=== PATIENT | female | born 1985 | race African-American/Black ===

== ENCOUNTER 2022-04-05 14:56 | Emergency (ER) | payer OTHER, SELFPAY ==
--- NOTE | ~2022-04-05 | CT_ITS ---
EXAMINATION: CT BRAIN W/O DATE: 04/05/2022 17:26 INDICATION: Syncope. Hypertension. TECHNIQUE: Computed tomography (CT) of the head was performed without intravenous contrast. The dose- length product was 605.33 mGy-cm. Automated exposure control and iterative reconstruction technique w ere employed. COMPARISON: No prior studies for comparison. FINDINGS: Normal brain parenchymal volume for age. Normal verma-white differentiation. No acute intrac ranial hemorrhage, infarction, mass or mass effect. There are bilateral symmetric basal ganglia calci fications. No ventriculomegaly or midline shift. Midline sagittal images demonstrate a normal corpus callosum, c raniovertebral junction and sella turcica. Basilar cisterns are patent. Paranasal sinuses and mastoids are pneumatized. No depressed skull fractures. IMPRESSION: 1. No acute intracranial abnormality. Reviewed, dictated and finalized at location B.
--- NOTE | ~2022-04-05 | XR_ITS ---
EXAMINATION: XR chest 2V 04/05/2022 17:37 INDICATION: Syncope. PROCEDURE: 2 view chest COMPARISON: No prior studies for comparison. FINDINGS: The lungs are clear. The cardiomediastinal silhouette is within normal limits. There are no pleural effusions. There is no pneumothorax suspected. IMPRESSION: 1: NO ACUTE CARDIOPULMONARY DISEASE. Reviewed, dictated and finalized at location B.
[2022-04-05 15:01] VITALS: BP 175/113; PULSE 84; RESP 16; TEMP 36.4; O2SAT 99
--- NOTE | 2022-04-05 15:13 | ECG_ITS ---
Measurements Intervals [place] Rate: 78 P: 53 MD: 146 QRS: 64 QRSD: 86 T: 42 QT: 375 QTc: 429 Interpretive Statements SINUS RHYTHM WITH SINUS ARRHYTHMIA BASELINE ARTIFACT VOLTAGE CRITERIA FOR LVH DIFFUSE J-POINT ELEVATION CONSIDER REPOLARIZATION ABNORMALITY BORDERLINE ECG NO PREVIOUS ECG AVAILABLE FOR COMPARISON Electronically Signed On 04-05-2022 16:28:00 CDT by Brian Ashley M.D.
[2022-04-05 15:28] LABS: Basophils Percent Auto 0.9 % (0.2-1.2); Eosinophils Absolute Auto 0.1 K/mm3 (0-0.3); Eosinophils Percent Auto 2.8 % (0-4.4); Hematocrit 38.9 % (37.0-47.0); Hemoglobin 12.4 g/dL (12.0-15.0); Immature Granulocyte Absolute 0.01 K/mm3 (0.00-0.031); Immature Granulocyte Percent A 0.2 % (0-0.5); Lymphocytes Absolute Auto 2.12 K/mm3 (0.9-3.2); Lymphocytes Percent Auto 45.1 % (18.3-44.2); Mean Corpuscular HGB Conc 31.9 g/dl (32-36); Mean Corpuscular Hemoglobin 29.5 pg (26-34); Mean Corpuscular Volume 92.4 fl (80-100); Mean Platelet Volume 10.3 fl (7.4-10.4); Monocytes Absolute Auto 0.4 K/mm3 (0.1-0.6); Monocytes Percent Auto 8.7 % (2.6-8.5); Neutrophils Percent Auto 42.3 % (45.5-73.1); Platelet Count Result 268 k/mm3 (150-375); Red Blood Count 4.21 M/mm3 (4.2-5.4); Red Cell Distribution Width 13.3 % (11.5-14.5); White Blood Count 4.7 K/mm3 (4.5-10.0)
[2022-04-05 15:38] LABS: Alanine Aminotransferase 15 U/L (6-35); Albumin Level 4.9 g/dL (3.5-5.1); Alkaline Phosphatase 58 U/L (38-126); Anion Gap 10 mmol/L (8-16); Aspartate Amino Transferase 22 U/L (14-36); Bilirubin,Total 0.5 mg/dL (0.2-1.3); Blood Urea Nitrogen 13 mg/dL (7-17); Calcium 9.3 mg/dL (8.4-10.2); Carbon Dioxide 25 mmol/L (22-30); Chloride 104 mmol/L (98-107); Estimated CRCL calculation 77 ml/min; Estimated Glomerular Filt Rate > 60; Glucose 83 mg/dL (65-110); Potassium 3.9 mmol/L (3.4-5.0); Sodium 139 mmol/L (137-145)
--- NOTE | 2022-04-05 18:19 | ED.DIZZY ---
HPI - Dizziness General Chief Complaint: Syncope <Disha Cote PA-C - Last Filed: 04/05/22 20:48> Stated Complaint: High BP, Pressure in Chest <SHAWN Corbin Last Filed: 04/05/22 20:48> Time Seen by Provider: 04/05/22 17:06 <SHAWN Corbin Last Filed: 04/05/22 20:48> Source: patient <SHAWN Corbin Last Filed: 04/05/22 20:48> Mode of arrival: ambulatory <SHAWN Corbin Last Filed: 04/05/22 20:48> Limitations: no limitations <SHAWN Corbin Last Filed: 04/05/22 20:48> History of Present Illness HPI Narrative: This is a 36 year old female that presents to the ER after a syncopal episode today. Reports she was sitting in class and started to feel flushed. She passed out. Does report hitting her head. No other focal injuries. Reports she has not passed out before. Reports earlier today she was experiencing some left sided arm discomfort and tingling radiating into her left chest. Reports no symptoms currently. Denies vomiting, focal numness or weakness. <SHAWN Corbin Last Filed: 04/05/22 20:48> Related Data Home Medications: Home Medications Medication Instructions Recorded Confirmed No Home Medications 04/05/22 04/05/22 <Disha Cote PA-C - Last Filed: 04/05/22 20:48> Allergies/Adverse Reactions: Allergies Allergy/AdvReac Type Severity Reaction Status Date / Time No Known Allergies Allergy Verified 04/05/22 15:01 <SHAWN Corbin Last Filed: 04/05/22 20:48> Review of Systems Review of Systems: CONSTITUTIONAL: Denies fever CARDIOVASCULAR: Reports chest pain. Denies palpitations, or edema. RESPIRATORY: Denies dyspnea. GASTROINTESTINAL: Denies vomiting MUSCULOSKELETAL: Denies back pain, joint pain, or myalgia. NEUROLOGIC: Denies headache, numbness, or weakness. <SHAWN Corbin Last Filed: 04/05/22 20:48> All systems reviewed & are unremarkable except as noted in HPI and below <Disha Cote PA-C - Last Filed: 04/05/22 20:48> PMFSH Past Medical History Medical History: Medical History Allergies <Disha Cote PA-C - Last Filed: 04/05/22 20:48> Surgical History Surgical History: Surgical History No pertinent past surgical history <Disha Cote PA-C - Last Filed: 04/05/22 20:48> Family History Family History: Family History Father Hypertension Mother Hypertension Depression Sibling Depression Alcoholism Grandparent Alcoholism Asthma Cancer Diabetes mellitus Hypertension Depression Heart disease Cerebrovascular accident <Disha Cote PA-C - Last Filed: 04/05/22 20:48> Social History Social History: Social History Smoking status: Never smoker Alcohol intake: current Drinks per week: 2 Substance use: never <Disha Cote PA-C - Last Filed: 04/05/22 20:48> Exam Narrative: GENERAL: Well-appearing, well-nourished, and in no acute distress. HEAD: Normocephalic, atraumatic. EYES: PERRLA and EOMI. ENT: Nares clear, no rhinorrhea or epistaxis. Mucous membranes moist. Oropharynx without tonsillar hypertrophy exudate or other lesions. Bilateral TMs pearly verma non-bulging NECK: Supple. No adenopathy or masses. CHEST: Clear to auscultation. No respiratory distress. No wheezes rales or rhonchi HEART: Regular rate and rhythm. No murmur heard. Normal peripheral pulses. EXTREMITIES: Normal range of motion. No edema. Strength equal in bilateral upper and lower extremities (5/5) SKIN: Warm, dry, no rash. NEURO: No focal deficits. Alert and oriented x3. Cranial nerves II through XII grossly intact PSYCH: Normal mood and affect <Disha Cote PA-C - Last Filed: 04/05/22 20:48> Course N
[2022-04-05 19:13] LABS: INR 1.1; Prothrombin Time 13.4 Seconds (11.1-14.7)
[2022-04-05 19:14] LABS: Partial Thromboplastin Time 36.3 SECONDS (22.3-36.8)
[2022-04-05 19:23] LABS: D Dimer 0.38 ug/mL (<0.48)
[2022-04-05 19:34] LABS: Troponin I < 0.012 ng/mL (0.000-0.034)
[2022-04-05 21:34] VITALS: BP 154/72; PULSE 65; RESP 20; O2SAT 100
== END 2022-04-05 21:15 | disposition home or self-care (01) ==
PROVIDERS: Emergency Medicine; Physician Assistant; Emergency Provider Emergency Medicine; PCP Nurse Practitioner Family
DX: R55 Syncope and collapse (principal); I10 Essential (primary) hypertension; R94.31 Abnormal electrocardiogram [ECG] [EKG]
CPT/HCPCS: 36415; 70450; 71046; 80053; 84484; 85025; 85380; 85610; 85730; 93005; 99284

== ENCOUNTER 2022-04-14 15:46 | Outpatient (CLI) | payer OTHER, SELFPAY ==
[2022-04-14 19:38] LABS: T4 Thyroxine 7.36 ug/dL (5.53-11.0)
== END 2022-04-14 15:47 | disposition home or self-care (01) ==
LOC: ANHLAB 15:48
PROVIDERS: PCP Nurse Practitioner Family; Visit Provider Obstetrics & Gynecology
DX: E04.9 Nontoxic goiter, unspecified (principal)
CPT/HCPCS: 36415; 84436; 84443

== ENCOUNTER 2022-05-14 08:53 | Emergency (ER) | payer OTHER, SELFPAY ==
[2022-05-14 09:14] VITALS: BP 138/89; PULSE 83; RESP 16; TEMP 36.7; O2SAT 100
[2022-05-14 09:15] VITALS: BP 138/89; PULSE 83; RESP 16; TEMP 36.7; O2SAT 100
--- NOTE | 2022-05-14 09:41 | ED.URI ---
HPI - URI/Sore Throat General Chief Complaint: Upper Respiratory Infection Stated Complaint: sore throat, bodyaches Time Seen by Provider: 05/14/22 09:15 Source: patient Mode of arrival: ambulatory Limitations: no limitations History of Present Illness HPI Narrative: Ms. Ba is a 36-year-old female patient presenting to the clinic today with complaints of sore throat, body aches, sinus pressure, chills, nasal congestion, and productive cough with brown sputum. She reports that she has been sick for well over a week. 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 MD elicited complaint: cough, sore throat, rhinorrhea, nasal congestion and sinus pain Related Data Home Medications Medication Instructions Recorded Confirmed levonorgestrel 20 mcg/24 hours (8 1 device intrauterine ONCE 04/14/22 05/14/22 yrs) 52 mg intrauterine device (Mirena) Allergies Allergy/AdvReac Type Severity Reaction Status Date / Time No Known Allergies Allergy Verified 05/14/22 09:15 Review of Systems Review of Systems: Pertinent positives per HPI. Patient denies any fever, chills, rash, headache, visual changes, dizziness, cough, shortness of breath, chest pain, palpitations, nausea, vomiting, diarrhea, constipation, abdominal pain, or any urinary issues. PMFSH Past Medical History Medical History Allergies Surgical History Surgical History No pertinent past surgical history Family History Family History Father Hypertension Mother Hypertension Depression Sibling Depression Alcoholism Grandparent Alcoholism Asthma Cancer Diabetes mellitus Hypertension Depression Heart disease Cerebrovascular accident Social History Social History Smoking status: Never smoker Alcohol intake: current Drinks per week: 2 Substance use: never Comments At the time of my signature, I reviewed and agree with the nursing past medical, surgical, social, and family history. There is no relevant family history pertinent to the patient complaint. Exam Narrative: General: Well-developed, well nourished, in no apparent distress Head: Normocephalic, atraumatic Eyes: Pupils equally round and reactive to light bilaterally, EOM intact, sclera and conjunctive clear, no discharge, lids normal Ears: TMs intact and dull, ear canals clear, no drainage, grossly hearing normal. Nose: Nares patent, clear nasal discharge, severe inflammation, maxilla sinus tenderness. Mouth: Oral pharynx without lesions or masses, good dentition, MMM. Oropharynx red a postnasal drip Neck: Supple, trachea midline, mild enlargement of anterior cervical nodes, no thyroid masses or goiter palpable. Cardio: Regular rate and rhythm, s1 and s2 normal, no murmur appreciated. Resp: Clear to auscultation bilaterally, no rhonchi, rales, wheezing or rubs Course Course Emergency Course: Portions of this record may have been created with voice recognition software. Level of Care: Express Care Visit Vital Signs Vital signs: Vital Signs Temperature 36.7 C 05/14/22 09:14 Pulse Rate 83 05/14/22 09:14 Respiratory Rate 16 05/14/22 09:14 Blood Pressure 138/89 05/14/22 09:14 Pulse Oximetry 100 05/14/22 09:14 Temperature 36.7 C 05/14/22 09:15 Pulse Rate 83 05/14/22 09:15 Respiratory Rate 16 05/14/22 09:15 Blood Pressure 138/89 05/14/22 09:15 Pulse Oximetry 100 05/14/22 09:15 Vital signs reviewed MDM - URI/Sore Throat MDM Narrative Medical decision making narrative: At the time of visit patient is resting comfortably on exam table. Strep screen was obtained was negative in the clinic to
== END 2022-05-14 09:48 | disposition home or self-care (01) ==
PROVIDERS: Emergency Provider Nurse Practitioner Family; PCP Nurse Practitioner Family
DX: J01.90 Acute sinusitis, unspecified (principal); B96.89 Other specified bacterial agents as the cause of diseases classified elsewhere
CPT/HCPCS: 87081; 87880; 99213; G0463

== ENCOUNTER 2022-05-20 08:37 | Emergency (ER) | payer OTHER, SELFPAY ==
--- NOTE | ~2022-05-20 | XR_ITS ---
EXAMINATION: XR chest 2V DATE: 05/20/2022 09:20 INDICATION: Cough and fever. TECHNIQUE: Frontal and lateral views of the chest were obtained. COMPARISON: Chest 2 views 04/05/2022 FINDINGS: The chest demonstrates clear lungs without pneumonia, pleural effusion, or pneumothorax. Th e heart size is normal. IMPRESSION: 1. No acute cardiopulmonary disease. Reviewed, dictated and finalized at location E. ER APPRENTICE
[2022-05-20 08:42] VITALS: BP 153/105; PULSE 65; RESP 20; TEMP 36.4; O2SAT 100
[2022-05-20 08:51] VITALS: BP 153/105; PULSE 65; RESP 20; TEMP 36.4; O2SAT 100
--- NOTE | 2022-05-20 08:55 | ED.URI ---
HPI - URI/Sore Throat General Chief Complaint: Upper Respiratory Infection Stated Complaint: fever, SOB, body ache Time Seen by Provider: 05/20/22 08:55 Source: patient Mode of arrival: ambulatory Limitations: no limitations History of Present Illness HPI Narrative: 36-year-old female presents with complaint sinus congestion, sinus pressure, fatigue, postnasal drainage and fever. Was seen here May 14 for same complaints given Augmentin. States that the antibiotic caused her to severe diarrhea after taking for 3 days. States that now she is feeling worse. Also has some nausea. Is not sure if symptoms are related to sinus infection or antibiotic use. Also reports some mild shortness breath with exertion. All systems reviewed and negative except as noted above. Related Data Home Medications Medication Instructions Recorded Confirmed levonorgestrel 20 mcg/24 hours (8 1 device intrauterine ONCE 04/14/22 05/20/22 yrs) 52 mg intrauterine device (Mirena) Allergies Allergy/AdvReac Type Severity Reaction Status Date / Time No Known Allergies Allergy Verified 05/20/22 08:49 Review of Systems Review of Systems: CONSTITUTIONAL: Reports fever, chills, or sweats. EYES: Denies visual changes, redness, or discharge. ENT: Reports rhinorrhea, congestion, sore throat. Denies otalgia. CARDIOVASCULAR: Denies chest pain, palpitations, or edema. RESPIRATORY: Reports cough and dyspnea with exertion. GASTROINTESTINAL: Denies abdominal pain. Reports nausea, vomiting, or diarrhea. GENITOURINARY: Denies dysuria or hematuria. SKIN: Denies rash or itching. MUSCULOSKELETAL: Denies back pain, joint pain, or myalgia. NEUROLOGIC: Denies headache, numbness, or weakness. PSYCHIATRIC: Denies anxiety or depression. All other systems reviewed are negative, except as documented in HPI. [facility] Past Medical History Medical History Allergies Surgical History Surgical History No pertinent past surgical history Family History Family History Father Hypertension Mother Hypertension Depression Sibling Depression Alcoholism Grandparent Alcoholism Asthma Cancer Diabetes mellitus Hypertension Depression Heart disease Cerebrovascular accident Social History Social History Smoking status: Never smoker Alcohol intake: current Drinks per week: 2 Substance use: never Comments At time of signature, agree with nursing past medical, surgical, social and family history. There is no relevant family history pertinent to the presenting complaint. Exam Narrative: GENERAL: This is a well-nourished, well-developed patient. Patient ill-appearing but in no distress. HEAD: normocephalic, atraumatic. EYES: PERRL. Sclera clear/white. Vision is grossly intact. EARS: External ears normal, auditory canals clear and without drainage, fluid bilateral TMs without erythema. NOSE: External nose normal with clear nasal drainage, moderate congestion, bilateral maxillary sinus tenderness. THROAT: Mucous membranes moist, erythema with postnasal drainage. NECK: Neck supple, non-tender without lymphadenopathy, masses or thyromegaly. CARDIOVASCULAR: Regular rate and rhythm without murmurs, gallops, or rubs. RESPIRATORY: Clear to auscultation. Breath sounds equal bilaterally. No wheezes, rales, or rhonchi. SKIN: warm, Dry, intact with no suspicious lesions or rash, good texture and turgor. NEURO: awake, alert, and oriented to person, place and time. There were no obvious focal neurologic abnormalities. EXTREMITIES: No joint tenderness, effusion, or edema noted. Course Course Level of Care: Express Care Visit Vital Signs Vital signs: Vital Signs Temperature 36.4 C 05/20/22 08:42
== END 2022-05-20 10:03 | disposition home or self-care (01) ==
PROVIDERS: Emergency Provider Nurse Practitioner Family; PCP Nurse Practitioner Family
DX: J01.90 Acute sinusitis, unspecified (principal); Z20.822 Contact with and (suspected) exposure to COVID-19
CPT/HCPCS: 71046; 87426; 99213; C9803; G0463

== ENCOUNTER 2023-04-19 09:51 | Emergency (ER) | payer OTHER, SELFPAY ==
--- NOTE | 2023-04-19 09:59 | ED.URI ---
HPI - URI/Sore Throat General Chief Complaint: Upper Respiratory Infection Stated Complaint: Sinus infection Time Seen by Provider: 04/19/23 10:02 Source: patient Mode of arrival: ambulatory Limitations: no limitations History of Present Illness HPI Narrative: Shwetha is a 37-year-old female patient presenting to the clinic today with complaints of a possible sinus infection. She reports she has had sinus pressure and congestion times 10-14 days. Denies any fever or chills. Has taken at home COVID test and it was negative. Reports having brown nasal drainage and foul taste in her mouth. MD elicited complaint: rhinorrhea, nasal congestion and sinus pain Related Data Home Medications Medication Instructions Recorded Confirmed levonorgestrel 21 mcg/24 hours (8 1 device intrauterine ONCE 04/14/22 04/19/23 yrs) 52 mg intrauterine device (Mirena) losartan 25 mg tablet 25 mg PO DAILY 04/19/23 04/19/23 Allergies Allergy/AdvReac Type Severity Reaction Status Date / Time No Known Allergies Allergy Verified 04/19/23 10:00 Review of Systems Review of Systems: Pertinent positives per HPI. Patient denies any fever, chills, rash, visual changes, dizziness, cough, shortness of breath, chest pain, palpitations, nausea, vomiting, diarrhea, constipation, abdominal pain, or any urinary issues. PMFSH Past Medical History Medical History Allergies Surgical History Surgical History No pertinent past surgical history Family History Family History Father Hypertension Mother Hypertension Depression Sibling Depression Alcoholism Grandparent Alcoholism Asthma Cancer Diabetes mellitus Hypertension Depression Heart disease Cerebrovascular accident Social History Social History Smoking status: Never smoker Alcohol intake: current Drinks per week: 2 Substance use: never Comments At the time of my signature, I reviewed and agree with the nursing past medical, surgical, social, and family history. There is no relevant family history pertinent to the patient complaint. Exam Narrative: General: Well-developed, well nourished, in no apparent distress Head: Normocephalic, atraumatic Eyes: Pupils equally round and reactive to light bilaterally, EOM intact, sclera and conjunctive clear, no discharge, lids normal Ears: TMs intact and clear, ear canals clear, no drainage, grossly hearing normal. Nose: Nares patent, brown nasal discharge, moderate inflammation, maxillary and frontal sinus tenderness. Mouth: Oral pharynx without lesions or masses, good dentition, MMM. Postnasal drip Neck: Supple, trachea midline, no enlargement of anterior or posterior cervical nodes, no thyroid masses or goiter palpable. Cardio: Regular rate and rhythm, s1 and s2 normal, no murmur appreciated. Resp: Clear to auscultation bilaterally, no rhonchi, rales, wheezing or rubs Course Course Emergency Course: Portions of this record may have been created with voice recognition software. Level of Care: Express Care Visit Vital Signs Vital signs: Vital signs reviewed MDM - URI/Sore Throat MDM Narrative Medical decision making narrative: At the time of visit patient is resting comfortably on the exam table. I suspect patient has acute bacterial rhinosinusitis. Prescription for doxycycline and prednisone was sent to the pharmacy and supportive measures were discussed with the patient she voiced understanding discharge instructions agrees to treatment plan. Differential Diagnosis Differential diagnosis: Likely upper respiratory infection, otitis media, sinusitis, viral infection, bronchitis, influenza, pharyngitis and other (COVID) Discharge Plan Discharge Clinical Impression:
[2023-04-19 10:00] VITALS: BP 134/84; PULSE 88; RESP 16; TEMP 36.6; O2SAT 100
[2023-04-19 10:01] VITALS: BP 134/84; PULSE 88; RESP 16; TEMP 36.6; O2SAT 100
== END 2023-04-19 10:16 | disposition home or self-care (01) ==
PROVIDERS: Emergency Provider Nurse Practitioner Family
DX: J01.90 Acute sinusitis, unspecified (principal)
CPT/HCPCS: 99213; G0463